=== PATIENT | female | born 1945 | race Caucasian/White ===

== ENCOUNTER 2024-02-07 13:57 | Outpatient (RCR) | payer MEDICARE, OTHER, SELFPAY | END 2024-03-19 15:44 | disposition home or self-care (01) | LOC: PT 13:57 | DX: M25.561 Pain in right knee (principal) | CPT/HCPCS: 97110; 97112; 97140; 97162; 97164 ==

== ENCOUNTER 2025-06-16 16:52 | Outpatient (RCR) | payer MEDICARE, OTHER, SELFPAY | END 2025-06-28 09:26 | disposition home or self-care (01) | LOC: PT 16:52 | DX: M54.50 Low back pain, unspecified (principal); G89.29 Other chronic pain | CPT/HCPCS: 97110; 97140; 97161 ==